=== PATIENT | male | born 1970 | race Caucasian/White ===

== ENCOUNTER 2023-01-09 12:16 | Emergency (ER) | payer BC, MEDICAID, OTHER ==
[~2023-01-09] VITALS: Ht 177.8 cm; Wt 119.0 kg
[2023-01-09] MEDS ORDERED: SODIUM CHLORIDE 0.9% 1,000 ML IV ONE (12:45)
[2023-01-09 14:38] LABS: HEMATOCRIT. 41.1 % (42.0-52.0); HEMOGLOBIN. 13.8 g/dL (14.0-18.0); MEAN CORPUSCULAR HEMOGLOBIN 29.1 pg (28.0-32.0); MEAN CORPUSCULAR VOLUME 86.6 fL (80.0-94.0); MEAN PLATELET VOLUME 8.9 fl (7.4-10.4); PLATELET 191 x1000/uL (130-400); RED BLOOD CELL COUNT 4.75 mill/uL (4.7-6.1); RED CELL DISTRIBUTION WIDTH 14.4 % (11.6-14.6)
[2023-01-09 14:46] LABS: D-DIMER 2.25 mg/L FEU (<0.50); INR 1.2; PROTHROMBIN TIME 12.9 sec (9.6-11.0)
[2023-01-09 14:57] LABS: PLATELET ESTIMATE NORMAL
[2023-01-09 15:03] LABS: CHLORIDE 95 mEq/L (98-107)
[2023-01-09 15:41] LABS: CLARITY URINE CLEAR (CLEAR); COLOR URINE YELLOW (YELLOW); KETONES URINE TRACE (NEGATIVE); LEUKOCYTE ESTERASE URINE NEGATIVE (NEGATIVE); NITRITE URINE NEGATIVE (NEGATIVE); OCCULT BLOOD URINE NEGATIVE (NEGATIVE); PH URINE 5.5 (4.5-8.0); PROTEIN URINE 1+ (NEGATIVE); SPECIFIC GRAVITY URINE 1.019 (1.005-1.030); UROBILINOGEN URINE 0.2 E.U./dL (0.2-1.0)
[2023-01-09] MEDS ORDERED: PIPERACILLIN/TAZ 3.375G PREMIX 50 ML IV ONE (16:00)
[2023-01-09] MEDS ORDERED: KCL 20MEQ/100ML PREMIX 100 ML IV ONE (16:00)
[2023-01-09] MEDS ORDERED: POTASSIUM CHLORIDE 10MEQ TABLET SR PO SCH (16:00)
[2023-01-09] MEDS ORDERED: VANCOMYCIN 1G PREMIX 200 ML IV SCH (16:00)
[2023-01-09] MEDS ORDERED: PIPERACILLIN/TAZOBACTAM 3.375G in DEXT 5% WATER 50ML IV NR (16:45)
[2023-01-09] MEDS ORDERED: IOHEXOL-350 100 ML BOTTLE ONE (17:21)
[2023-01-09 21:31] VITALS: BP 132/65
== END 2023-01-10 01:17 | disposition short-term general hospital (02) ==
LOC: ER 12:16 → CANBEDREQ 01-11 07:20
DX: R55 Syncope and collapse (principal); Z85.9 Personal history of malignant neoplasm, unspecified
CPT/HCPCS: 36415; 71045; 71275; 74176; 80053; 81003; 83605; 83690; 83880; 84484; 85025; 85379; 85610; 87040; 93005; 96365; 96366; 99285; J2543; J3370; J3480; J7030; J7060; Q9967; Z7610